=== PATIENT | female | born 1975 | race Caucasian/White ===

== ENCOUNTER 2018-04-28 10:43 | Emergency (ER) | payer MEDICAID ==
[~2018-04-28] VITALS: Ht 149.9 cm; Wt 70.8 kg
[2018-04-28 10:51] VITALS: BP 137/79; Ht 149.9 cm; Wt 70.8 kg
== END 2018-04-28 12:22 | disposition home or self-care (01) ==
LOC: ED 10:43
DX: S01.81XA Laceration without foreign body of other part of head, initial encounter (principal); I10 Essential (primary) hypertension; W26.8XXA Contact with other sharp object(s), not elsewhere classified, initial encounter; Y93.E9 Activity, other interior property and clothing maintenance; Y92.89 Other specified places as the place of occurrence of the external cause; Y99.8 Other external cause status
CPT/HCPCS: J2001